=== PATIENT | male | born 1980 | race Caucasian/White ===

== ENCOUNTER 2020-03-22 12:22 | Emergency (ER) | payer MEDICAID, SELFPAY ==
[~2020-03-22] VITALS: Ht 170.2 cm; Wt 88.9 kg
[2020-03-22 12:22] VITALS: BP 140/89; Ht 170.2 cm; Wt 88.9 kg
== END 2020-03-22 13:03 | disposition home or self-care (01) ==
LOC: ED 12:22
DX: U07.1 COVID-19 (principal)
CPT/HCPCS: U0003-CS